=== PATIENT | female | born 1960 | race Caucasian/White ===

== ENCOUNTER → 2018-03-30 11:54 | Outpatient (CLI) | payer MEDICARE, BC, SELFPAY ==
--- NOTE | 2018-03-30 | DI.MRI.S_ITS ---
PROCEDURE: MR ELBOW LT W CON INDICATIONS: LEFT ELBOW PAIN TECHNIQUE: Noncontrast coronal proton density fast spin echo and T2 fast spin echo with fat saturation, axial and sagittal T1 spin echo and T2 fast spin echo with fat saturation through the elbow. COMPARISON: [facility] [place], CR, XR ELBOW 1 OR 2 VIEWS LEFT, 03/14/2018, 15:07. FINDINGS: Image quality: Suboptimal due to difficulties with patient positioning and magnetic field distortion related to reported spinal surgical instrumentation. There was unsuccessful fat suppression. Multiple repeat attempts. Lateral structures: The lateral ulnar collateral ligament and radial collateral ligament both appear intact, where visualized although internal signal cannot be assessed. The overlying common extensor tendon also appears grossly normal although not well visualized due to technical reasons described above. Medial structures: The ulnar collateral ligament appears intact, however internal signal cannot be assessed due to failure of fat suppression on multiple pulse sequences. No definite thickening is seen. The overlying common flexor tendon appears mildly thickened with possible internal signal change however this is only visualized on one pulse sequence given technical difficulty. The ulnar nerve appears normal in size and signal within the cubital tunnel. Anterior structures: The biceps and brachialis tendons both appear intact as they insert onto the proximal radius and ulna, respectively. No bicipitoradial bursal fluid. The median and radial neurovascular bundles appear normal; no focal muscle atrophy to suggest nerve impingement. Posterior structures: The conjoint triceps tendon from the long and lateral heads appears intact. The medial head of the triceps tendon also appears normal, with direct muscle insertion onto the olecranon. No olecranon bursal fluid. Bone and cartilage: No bone marrow contusions or fractures. No osteochondral injuries. IMPRESSION: Markedly suboptimal examination for reasons described above. Overall, no evidence of occult fracture or marrow signal abnormalities. Possible mild common flexor origin tendinopathy, suggesting medial epicondylitis syndrome, however evaluation due to technical reasons as above. Therefore please correlate clinically to point tenderness. Dictated by: Mihir Cruz M.D. on 04/03/2018 at 11:54 Approved by: Mihir Cruz M.D. on 04/03/2018 at 12:40
== END ==
PROVIDERS: Family Provider Family Medicine; PCP Family Medicine; Visit Provider Orthopaedic Surgery
DX: M25.522 Pain in left elbow (principal)
CPT/HCPCS: 73221

== ENCOUNTER → 2018-08-28 10:53 | Outpatient (CLI) | payer MEDICARE, BC, SELFPAY ==
--- NOTE | 2018-08-28 11:03 | DI.CT.S_ITS ---
PROCEDURE: CT ABDOMEN WO/W CON INDICATIONS: EPIGASTRIC PAIN TECHNIQUE: Noncontrast 3 mm thick sections acquired through the pancreas. After the administration of intravenous contrast, 3 mm thick pancreatic-phase images acquired from the diaphragm to the iliac crests. 3 mm thick coronal and sagittal reformats were performed. For radiation dose reduction, the following was used: automated exposure control, adjustment of mA and/or kV according to patient size. COMPARISON: [facility], CT, CT-IVP, 12/26/2011, 8:18. [facility], MR, ABDOMEN W&WO CONTRAST, 10/07/2013, 12:19. [facility], CT, ABDOMEN W&WO CONTRAST, 03/11/2016, 8:31. FINDINGS: Image quality: Excellent. Lung bases: There is mild dependent atelectasis bilaterally. Heart size is normal. Pancreas: Within the uncinate process of the pancreas, there is a small lobulated hypoattenuating lesion measuring up to approximately 1.6 x 1.3 cm, stable in size from the prior studies. There are thin internal septations. No new discrete pancreatic mass identified. No pancreatic duct dilatation. Other solid organs: Evaluation of the liver demonstrates 2 small hypodense foci in the right hepatic lobe which are too small to characterize but likely represent cysts. Gallbladder is partially distended. There is a small punctate calcified gallstone without gallbladder wall thickening. Biliary system is non dilated. Spleen is normal in size and enhancement. No adrenal nodules. Multiple small renal cysts are redemonstrated bilaterally. No hydronephrosis. Peritoneum and bowel: Visualized bowel loops demonstrate normal wall thickness and caliber. No free fluid or air. Nodes and vessels: No retroperitoneal or mesenteric adenopathy by size criteria. Aorta and inferior vena cava are normal in size. Bones: No suspicious bony lesions. No vertebral body compression fractures. Miscellaneous: No ventral hernias. There are postsurgical changes within the ventral abdominal wall. IMPRESSION: 1. Small cystic lesion within the uncinate process of the pancreas appears stable in size compared to the prior studies. 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 Given its size and patient age, continued followup is recommended every 2 years for up to 9 years from the date of the initial study in 2011. Dictated by: William Hernandez M.D. on 08/28/2018 at 17:30 Approved by: William Hernandez M.D. on 08/28/2018 at 17:36
== END ==
PROVIDERS: Family Provider Family Medicine; PCP Family Medicine; Visit Provider Family Medicine
DX: R10.13 Epigastric pain (principal); K86.9 Disease of pancreas, unspecified
CPT/HCPCS: 74170; Q9967

== ENCOUNTER → 2020-01-28 12:12 | Outpatient (CLI) | payer MEDICARE, BC, SELFPAY ==
--- NOTE | 2020-01-28 | DI.US.S_ITS ---
PROCEDURE: US EXTREMITY NONVASC UPPER LT INDICATIONS: ELBOW SWELLING TECHNIQUE: Real-time scanning was performed of the antecubital fossa on the left, with image documentation. COMPARISON: None. FINDINGS: No abnormality found. IMPRESSION: Normal sonographic evaluation of the antecubital fossa on the left. Dictated by: Nic Spangler M.D. on 01/28/2020 at 14:03 Approved by: Nic Spangler M.D. on 01/28/2020 at 14:04
--- NOTE | 2020-01-28 | DI.MG.S_ITS ---
BILATERAL DIGITAL SCREENING MAMMOGRAM 3D/2D WITH CAD: 01/28/2020 CLINICAL: Routine screening. No prior exams were available for comparison. The tissue of both breasts is heterogeneously dense. This may lower the sensitivity of mammography. Current study was also evaluated with a Computer Aided Detection (CAD) system. No significant masses, calcifications, or other findings are seen in either breast. IMPRESSION: NEGATIVE There is no mammographic evidence of malignancy. A 1 year screening mammogram is recommended. This exam was interpreted at Station ID: [id number]. NOTE: For mammograms, a report in lay terms will be sent to the patient. Approximately 15% of breast malignancies will not be visualized mammographically. In the management of a palpable breast mass, a negative mammogram must not discourage biopsy of a clinically suspicious lesion. Electronically Signed By: Shruthi ortiz/liam:01/28/2020 14:11:45 letter sent: Normal Exam ACR BI-RADS Category 1: Negative [id number]
== END ==
PROVIDERS: Family Provider Family Medicine; PCP Internal Medicine; Referring Provider Internal Medicine; Visit Provider Internal Medicine
DX: Z12.31 Encounter for screening mammogram for malignant neoplasm of breast (principal); M25.422 Effusion, left elbow
CPT/HCPCS: 76882; 77063; 77067